=== PATIENT | male | born 1990 | race Caucasian/White ===

== ENCOUNTER 2021-06-09 22:03 | Emergency (ER) | payer MEDICAID ==
[~2021-06-09] VITALS: Ht 182.9 cm; Wt 68.0 kg
[2021-06-09 22:20] VITALS: BP 126/82
[2021-06-09] MEDS ORDERED: TDAP [DIPH/PERTUSSIS/TET] 0.5 ML VIAL IM ONE ×2 (22:30→22:35)
[2021-06-09] MEDS ORDERED: AMOX/CLAVULANATE 875 MG TABLET PO ONE (23:00)
[2021-06-09] MEDS ORDERED: AMOX/CLAVULANATE 875 MG TABLET ONE (23:03)
[2021-06-09] MEDS ORDERED: AMOX-430 PO (23:04)
--- NOTE | 2021-06-09 23:14 | NUR ---
Patient discharged to home in stable condition. Written and verbal after care instructions given. Patient verbalizes understanding of instruction.
== END 2021-06-09 23:14 | disposition home or self-care (01) ==
LOC: ER 22:30
DX: S60.511A Abrasion of right hand, initial encounter (principal); W54.0XXA Bitten by dog, initial encounter; Y93.89 Activity, other specified; Y92.89 Other specified places as the place of occurrence of the external cause; Y99.8 Other external cause status
CPT/HCPCS: 73130-TC; 90715